=== PATIENT | male | born 1975 | race Caucasian/White ===

== ENCOUNTER 2019-08-09 14:59 | Emergency (ER) | payer MEDICAID ==
[~2019-08-09] VITALS: Ht 182.9 cm; Wt 107.0 kg
[2019-08-09 18:29] LABS: BASOPHILS % 0.5 % (0.0-2.0); EOSINOPHILS % 3.6 % (0.0-5.0); HEMATOCRIT. 48.7 % (42.0-52.0); HEMOGLOBIN. 16.4 g/dL (14.0-18.0); LYMPHOCYTES % 18.1 % (20.0-50.0); MEAN CORPUSCULAR HEMOGLOBIN 31.3 pg (28.0-32.0); MEAN CORPUSCULAR VOLUME 93.4 fL (80.0-94.0); MEAN PLATELET VOLUME 7.9 fl (7.4-10.4); MONOCYTES % 14.8 % (2.0-8.0); PLATELET 200 x1000/uL (130-400); RED BLOOD CELL COUNT 5.22 mill/uL (4.7-6.1)
[2019-08-09 18:34] LABS: CHLORIDE 104 mEq/L (98-107)
[2019-08-09] MEDS ORDERED: MORPHINE SULFATE 4 MG/ML CPJ (NOT FOR IM USE) IV STA (18:55)
[2019-08-09] MEDS ORDERED: IPRATROPIUM BROMIDE (0.02%) 0.5MG/2.5ML NEB HHN STA (18:55)
[2019-08-09] MEDS ORDERED: KETOROLAC 30MG/ML VIAL IV STA (18:55)
[2019-08-09] MEDS ORDERED: ALBUTEROL (0.083%) 2.5MG/3ML NEB HHN STA (18:55)
[2019-08-09] MEDS ORDERED: ONDANSETRON HCL 4MG/2ML INJ IV STA (18:55)
[2019-08-09] MEDS ORDERED: METHYLPREDNISOLONE SOD SUCC 125 MG/2 ML VIAL IV STA (18:55)
[2019-08-09 20:52] LABS: CLARITY URINE CLEAR (CLEAR); COLOR URINE YELLOW (YELLOW); KETONES URINE TRACE (NEGATIVE); LEUKOCYTE ESTERASE URINE NEGATIVE (NEGATIVE); NITRITE URINE NEGATIVE (NEGATIVE); OCCULT BLOOD URINE NEGATIVE (NEGATIVE); PROTEIN URINE TRACE (NEGATIVE); SPECIFIC GRAVITY URINE 1.024 (1.005-1.030)
[2019-08-09 22:35] VITALS: BP 138/73
== END 2019-08-09 22:49 | disposition home or self-care (01) ==
LOC: ER 14:59
DX: J45.901 Unspecified asthma with (acute) exacerbation (principal); F17.200 Nicotine dependence, unspecified, uncomplicated; F12.10 Cannabis abuse, uncomplicated; Z88.0 Allergy status to penicillin; Z87.442 Personal history of urinary calculi
CPT/HCPCS: 36415; 71045; 74176; 80053; 81003; 83880; 84484; 85025; 93005; 94644; 96374; 96375; 99285; J1885; J2270; J2405; J2930; J7611; Z7610